=== PATIENT | male | born 1960 | race Caucasian/White ===

== ENCOUNTER 2018-05-15 08:47 | Emergency (ER) | payer OTHER ==
--- NOTE | 2018-05-15 09:53 | UC ---
Abdominal Pain Male HPI - HPI Summary HPI Summary: IN-ROOM NOTE: This patient is a 57 year old M presenting to [facility] [place] with a chief complaint of sharp and constant bilat abdominal pain since 05/11/2018. He feels the pain more so on the right side than the left side, and it also radiates to his back and groin. The patient rates the pain 3/10 in severity currently but 9/10 at its worse. The pain decreased starting on 05/14/2018. Symptoms aggravated by exercise and standing. Patient reports fever, difficulty sitting up, and decreased appetite. Patient denies nausea, unusual urinary symptoms, problems with his testicles, N/V/D, and penile discharge. PCP is Horacio Hernandez MD who he hasnt seen in a few years. NOTE: Vital signs stable. BP, patient on amlodipine. Pulse ox 97%. 3/10 abdominal discomfort. Visit history noncontributory to present complaint. NURSES NOTE: Patient complains of abdominal pain starting on Thursday. He states his abdomen was painful to the touch and it hurt him to move. Patient states the pain improved yesterday, but he is concerned and wants to be seen. He believes he had a fever. Patient denies nausea, but states he has a poor appetite. - History of Current Complaint Chief Complaint: UCAbdominalPain Stated Complaint: ABD PAIN Time Seen by Provider: 05/15/18 09:19 Hx Obtained From: Patient Onset/Duration: Sudden Onset, Lasting Days - 05/11/2018, Other - Better since yesterday Severity Initially: Severe Severity Currently: Mild Pain Intensity: 3 Pain Scale Used: 0-10 Numeric Location: Discrete At: RLQ Radiates: Yes Radiates to: Back, LLQ Character: Sharp Aggravating Factor(s): Movement Associated Signs And Symptoms: Positive: Fever, Decreased Appetite, Other - Difficulty sitting up. Denies problems with his testicles.. Negative: Urinary Symptoms, Nausea, Vomiting, Diarrhea, Penile Discharge - Allergies/Home Medications Allergies/Adverse Reactions: Allergies Allergy/AdvReac Type Severity Reaction Status Date / Time Opioids - Morphine Analogues Allergy Severe Nausea And Verified 05/15/18 09:03 Vomiting Home Medications: Home Medications amLODIPine TAB* [Norvasc 5 mg TAB*] 5 mg PO DAILY 05/15/18 [History Confirmed ] PMH/Surg Hx/FS Hx/Imm Hx Cardiovascular History: Hypertension GI/ History: Ulcer - Denies, Kidney Stones - Surgical History Surgical History: Yes Surgery Procedure, Year, and Place: Cervical disk C6-7 fusion - 2010. Bicep tendon repair 1998 - Family History Known Family History: Positive: Cardiac Disease, Other - Cancer - Social History Alcohol Use: Weekly Alcohol Amount: beer Substance Use Type: None Smoking Status (MU): Former Smoker When Did the Patient Quit Smoking/Using Tobacco: 1986 Review of Systems Constitutional: Fever Gastrointestinal: Abdominal Pain - sharp and constant bilat abdominal pain, Vomiting - Denies, Diarrhea - Denies, Nausea - Denies, Other - Decreased appetite Genitourinary: Vaginal/Penile Discharge - Denies, Other - Any urinary symptoms or problems with his testicle. Musculoskeletal: Other: - Difficulty standing up All Other Systems Reviewed And Are Negative: Yes - Comments Additional Review of Systems Comments: POSITIVE: SHARP AND CONSTANT BILAT ABDOMINAL PAIN, MORE SO ON THE RIGHT THAN LEFT, THAT RADIATES TO HIS BACK AND GROIN. FEVER, DIFFICULTY SITTING UP, AND DECREASED APPETITE. NEGATIVE: NAUSEA, UNUSUAL URINARY SYMPTOMS, PROBLEMS WITH TESTICLES, N/V/D, AND PENILE DISCHARGE. Physical Exam - Summary Physical Exam Summary: Appearance: The patient is well-appearing, is in no pain distress, and is well- nourished. Eyes: Conjunctiva are clear. ENT: The hearing is grossly normal, the pharynx is normal, and the TMs are normal. There is no muffled or hoarse voice. Neck: The neck is supple and there is no lymphadenopathy. Respiratory: The chest is nontender. The lungs are clear, there are normal breath sounds, and there is no respiratory distress. Cardiovascular: Heart is regular rate and rhythm. There is no murmur. Abdomen: PATIENT CAN JUMP IN THE AIR WITHOUT PAIN AND FLEX AND EXTEND THE BACK WITHOUT PAIN TO THE ABDOMEN. WHEN HE LIES DOWN, SUPINE, THERES PAIN IN THE RLQ. RLQ PAIN TO PERCUSSION AND PALPATION. EXAMINATION OF LLQ SHOWS PAIN RADIATING TO THE RLQ WITH PERCUSSION. NO TESTICULAR TENDERNESS OR HERNIA. Bowel sounds: present Musculoskeletal: Strength is intact. The patient moves all extremities. Neurological: The patient is alert. Motor and sensory examination grossly intact. Psychological: The patient displays age appropriate behavior Skin: Negative for rashes. Triage Information Reviewed: Yes Vital Signs: Initial Vital Signs Temp 98.2 F 05/15/18 09:05 Pulse 55 05/15/18 09:05 Resp 16 05/15/18 09:05 BP 155/92 05/15/18 09:05 Pulse Ox 97 05/15/18 09:05 Vital Signs Reviewed: Yes Abd Pain Male Course/Dx - Course Course Of Treatment: 57 year old with a concerning history of RLQ discomfort that has resolved somewhat over the last 5 days but is still present, especially with palpation and percussion of the RLQ. May have appendicitis. I discussed this possibility with the patient and also the possibility of a kidney stone, which he has had in the past. He will go to the ED for further evaluation and treatment as needed. Hypertensive BP reading of 155/92. Patient is being treated for the high BP. - Differential Dx/Clinical Impression Differential Diagnosis/HQI/PQRI: Other - appendicitis, kidney stone, UTI Provider Diagnoses: RLQ abdominal pain: unclear etiology, possible appendicitis Discharge - Sign-Out/Discharge Documenting (check all that apply): Patient Departure - D/C All imaging exams completed and their final reports reviewed: No Studies - Discharge Plan Condition: Stable Disposition: HOME-RECOMMEND TO ED Patient Education Materials: Acute Abdominal Pain (DC), Chronic Hypertension ( DC) Referrals: Horacio Hernandez MD [Primary Care Provider] - Additional Instructions: Hypertensive BP reading of 155/92. Follow up with your PCP within 4 weeks for your blood pressure to be rechecked. WE DISCUSSED: Both your current pain an year history of abdominal pain are concerning for appendicitis. There might be other possibilities but because you are in continued pain, you should go to the emergency department for further evaluation and treatment as needed. - Billing Disposition and Condition Condition: STABLE Disposition: Home-Recommend to ED - Attestation Statements Document Initiated by Scribe: Yes Documenting Scribe: Emile Hess Provider For Whom Nemo is Documenting (Include Credential): Jovi Guidry MD Scribe Attestation: Emile Alcaraz scrsherried for oJvi Guidry MD on 05/15/18 at 1104. Scribe Documentation Reviewed: Yes Provider Attestation: The documentation as recorded by the Emile escoto accurately reflects the service I personally performed and the decisions made by me, Jovi Guidry MD
== END 2018-05-15 10:09 | disposition home health service (06) ==
LOC: UCEAST 08:47
DX: R10.31 Right lower quadrant pain (principal)
CPT/HCPCS: 81003; 99202; G0463

== ENCOUNTER 2018-09-03 07:14 | Emergency (ER) | payer OTHER ==
[2018-09-03 07:29] VITALS: BP 134/89
--- NOTE | 2018-09-03 07:30 | UC ---
Throat Pain/Nasal Mark HPI - HPI Summary HPI Summary: Patient presents to urgent care reporting 7 days of progressive sinus congestion and ear fullness and painful sore throat. Patient states he's got thick green secretions coming from his sinus tachycardia for the last 5 days. Patient reports tactile fevers. Patient has taken [id number] Claudia aspirin as well as Daisy-Axtell cough and cold with some improvement. Patient denies cough, shortness of breath, chest pain.Patient denies nausea vomiting. Patient with decreased appetite. Patient's has similar symptoms. Patient' s medications reviewed this visit. Patient is not immunocompromised. - History of Current Complaint Stated Complaint: SINUS PAIN Hx Obtained From: Patient - Allergies/Home Medications Allergies/Adverse Reactions: Allergies Allergy/AdvReac Type Severity Reaction Status Date / Time Opioids - Morphine Analogues Allergy Severe Nausea And Verified 05/15/18 09:03 Vomiting Home Medications: Home Medications Aspirin [Adult Low Dose Aspirin EC] 81 mg PO DAILY 09/03/18 [History Confirmed 09/03/18] PMH/Surg Hx/FS Hx/Imm Hx Previously Healthy: Yes Cardiovascular History: Hypertension - Surgical History Surgical History: Yes Surgery Procedure, Year, and Place: Cervical disk C6-7 fusion - 2010. Bicep tendon repair 1998 - Family History Known Family History: Positive: Cardiac Disease, Other - Cancer - Social History Occupation: Employed Full-time Lives: With Family Alcohol Use: Weekly Alcohol Amount: beer Substance Use Type: None Smoking Status (MU): Former Smoker When Did the Patient Quit Smoking/Using Tobacco: 1986 Review of Systems All Other Systems Reviewed And Are Negative: Yes Constitutional: Positive: Fever - tactile Skin: Positive: Negative Eyes: Positive: Negative ENT: Positive: Sore Throat, Ear Ache, Nasal Discharge, Sinus Congestion, Sinus Pain/Tenderness Respiratory: Positive: Negative Cardiovascular: Positive: Negative Gastrointestinal: Positive: Negative Physical Exam - Summary Physical Exam Summary: Vital Signs Reviewed: Yes A+Ox3, no distress Eyes: Conjunctiva Clear, ROSA. EOM intact and full ENT: Hearing grossly normal, right TM with fluid, no erythema, turbinates inflammed and boggy, + PND thick secretion, sinuses TTP right max> left mmoist , uvula midline, no exudate, no erythema Neck: Positive: Supple Respiratory: Positive: No respiratory distress, No accessory muscle use + CTA throughout no w/r Cardiovascular: RRR nl s1, s2 no m/r CBT <2 sec abd soft + BS nt/nd no guarding, no distension Musculoskeletal Exam: GLOVER x 4 without difficulty Strength Intact, ROM Intact Neurological: Positive: Alert, + sensation throughout Psychological: Positive: Normal Response To Family Skin: Positive: no rash, no ecchymosis Triage Information Reviewed: Yes Throat Pain/Nasal Course/Dx - Course Course Of Treatment: Pt presents to with 7 days progressive sinus congestion , PND and sore throat. Pt reports tactile temp. with similar sx. Pt reports mild facial pain, right ear discomfort. no cp, sob. VSS. exam with fluid right ear and turbinates c/w rhinosinusitis. abx. flonase. hydrate. secretion precaution. humidify air - Differential Dx/Diagnosis Provider Diagnosis: Rhinosinusitis, Acute serous otitis media, right ear Discharge - Sign-Out/Discharge Documenting (check all that apply): Patient Departure All imaging exams completed and their final reports reviewed: No Studies - Discharge Plan Condition: Stable Disposition: HOME Prescriptions: Amoxicillin PO (*) [Amoxicillin 875 MG (*)] 875 mg PO BID #20 tab Fluticasone NASAL SPRAY 50MCG* [Flonase NASAL SPRAY 50MCG*] 2 spray BOTH NARES DAILY #1 btl Patient Education Materials: Rhinosinusitis (ED), Serous Otitis Media (ED) Referrals: Horacio Hernandez MD [Primary Care Provider] - Additional Instructions: - Stay well hydrated. Drink plenty of non-alcoholic, non-caffinated beverages. - Alternate ibuprofen (Advil, Motrin) 600mg and Tylenol every 3 hours for pain or fever. Take with food. Do NOT take for more than 4-5 days. - These infections are spread by secretions - do NOT share eating or drinking utensils - clean items you share with other people such as cell phones, computer mouse, TV remote, computer tablets,etc. Once you have been antibiotics for 2 days, change your toothbrush and your pillowcase. - get plenty of restful sleep - humidify the air in the room where you sleep - boil water, run a hot steam shower, vaporizer, cups of water by heat register - okay to take over the counter decongestant and cough medication - use nasal spray as prescribed - The antibiotics will likely cause diarrhea - this is normal - eating yogurt, taking pro-biotics may help - contact your doctor or return with questions or concerns - Billing Disposition and Condition Condition: STABLE Disposition: Home
== END 2018-09-03 07:48 | disposition home or self-care (01) ==
LOC: UCEAST 07:14
DX: J32.9 Chronic sinusitis, unspecified (principal); H65.01 Acute serous otitis media, right ear; I10 Essential (primary) hypertension; Z88.5 Allergy status to narcotic agent; Z79.82 Long term (current) use of aspirin; Z87.891 Personal history of nicotine dependence
CPT/HCPCS: 99211; G0463